=== PATIENT | male | born 1935 ===

== ENCOUNTER 2020-06-19 13:33 | Outpatient (REF) | payer MEDICARE, SELFPAY ==
[2020-06-19 14:52] LABS: Free T4 (Free Thyroxine) 1.25 ng/dL (0.71-1.85); Thyroid Stimulating Hormone 2.06 uIU/mL (0.32-4.0)
== END 2020-06-19 13:34 | disposition home or self-care (01) ==
LOC: HO.LNP 13:33
PROVIDERS: Visit Provider Internal Medicine
DX: E03.9 Hypothyroidism, unspecified (principal)
CPT/HCPCS: 84439; 84443